=== PATIENT | female | born 1975 | race Caucasian/White ===

== ENCOUNTER → 2020-03-22 | Outpatient (CLI) | payer OTHER ==
[~2020-03-22] MED LIST: COVID-19 VACC, MRNA(MODERNA)/PF 100 MCG/0.5 ML VIAL IM ONE
== END ==
LOC: VACCPMC 13:34
DX: Z23 Encounter for immunization (principal); Z20.828 Contact with and (suspected) exposure to other viral communicable diseases

== ENCOUNTER → 2020-04-27 | Outpatient (CLI) | payer OTHER | END | DRG 951 | LOC: VACCPMC 08:00 | DX: Z23 Encounter for immunization (principal); Z20.822 Contact with and (suspected) exposure to COVID-19 | CPT/HCPCS: 0012A; 91301 ==